=== PATIENT | female | born 1985 | race African-American/Black ===

== ENCOUNTER 2019-09-28 00:36 | Emergency (ER) | payer MEDICAID ==
[~2019-09-28] VITALS: Ht 162.6 cm; Wt 78.5 kg
[~2019-09-28 00:36] MED LIST: ACET-8386 PO; LEVE500T18 PO
[2019-09-28 00:43] VITALS: BP 124/75
--- NOTE | 2019-09-28 00:43 | NUR ---
PT TAKEN TO BED 12
--- NOTE | 2019-09-28 00:48 | NUR ---
PT ARRIVED TO ED C/O LEFT FOOT AND ANKLE PAIN S/P MECHANICAL FALL X TODAY AT 1430. RATES PAIN 9/10 AND DESCRIBES IT PRESSURE. VSS. PEDAL PULSES PRESENT BILATERALLY. CMS INTACT. NO REDNESS ON LEFT FOOT OR ANKLE. EDEMA PRESENT ON LEFT FOOT. PT IS UNABLE TO WALK, WHEELCHAIRED IN. NO OBVIOUS DEFORMITY NOTED ON EXTREMETIES. DENIES ANY HEAD INJURY. NKA. PMH: [place].
--- NOTE | 2019-09-28 01:08 | NUR ---
XR AT BEDSIDE.
[2019-09-28] MEDS ORDERED: KETOROLAC 60 MG/2 ML VIAL IM ONE (01:25)
--- NOTE | 2019-09-28 01:29 | NUR ---
PTS LEFT ANKEL WAS PUT IN A KASHMIR BANDAGE AND PT WAS ALSO GIVEN CRUTCHES. PTS PMSC WNL AND SHOWED GOOD USE OF CRUTCHES.
[2019-09-28 01:40] VITALS: BP 124/75
--- NOTE | 2019-09-28 01:40 | NUR ---
DISCHARGE PAPERS GIVEN TO PT. RX OF IBUPROFEN AND NORCO GIVEN. SIDE EFFECTS EXPLAINED. INSTRUCTED TO F/U WITH PCP AND WHEN TO RETURN TO ER. PT VERBALLIZED UNDERSTANDING OF DC INSTRUCTIONS. ALL QUESTIONS ANSWERED.
== END 2019-09-28 01:40 | disposition home or self-care (01) ==
LOC: MED 00:36
DX: S93.402A Sprain of unspecified ligament of left ankle, initial encounter (principal); F17.210 Nicotine dependence, cigarettes, uncomplicated; R56.9 Unspecified convulsions; W54.8XXA Other contact with dog, initial encounter; Y93.02 Activity, running; Y92.89 Other specified places as the place of occurrence of the external cause; Y99.8 Other external cause status
CPT/HCPCS: 73610; 96372; 99283; J1885; Q0092

== ENCOUNTER 2020-02-01 10:57 | Emergency (ER) | payer MEDICAID ==
[~2020-02-01] VITALS: Ht 162.6 cm; Wt 86.2 kg
[2020-02-01 11:13] VITALS: BP 123/78
[2020-02-01] MEDS ORDERED: KETOROLAC 60 MG/2 ML VIAL IM ONE ×2 (13:13→13:15)
[2020-02-01 13:27] VITALS: BP 119/71
== END 2020-02-01 13:26 | disposition home or self-care (01) ==
LOC: MED 10:57
DX: R10.9 Unspecified abdominal pain (principal); F12.10 Cannabis abuse, uncomplicated; Z79.899 Other long term (current) drug therapy; Z98.890 Other specified postprocedural states
CPT/HCPCS: 81002; 81025; 96372; 99283; J1885

== ENCOUNTER 2021-03-04 23:12 | Emergency (ER) | payer MEDICAID ==
[~2021-03-04] VITALS: Ht 162.6 cm; Wt 81.6 kg
[2021-03-04 23:14] VITALS: BP 130/81
--- NOTE | 2021-03-04 23:14 | NUR ---
TO BED VIA WHEELCHAIR
--- NOTE | 2021-03-04 23:19 | NUR ---
35 Y/O FEMALE ARRIVED TO THE ED WITH C/O SOB. PT REPORTS SOB STARTED 2 DAYS AGO AND HAS TAKEN ADVIL TO RELIEVE PAIN BUT HAS PERSISTED. PT DOES REPORT USAGE OF CIGARETTES AND SMOKING WEED. PATIENT HAS NON-PRODUCTIVE COUGH. PT ALSO REPORTS BRUISING ON THE RIGHT POSTERIOR RIBCAGE. BRUISING IS YELLOW. SKIN IS PINK/WARM/DRY; AAOX4 WITH EVEN AND STEADY GAIT; LUNGS CLEAR BL; HR EVEN AND REGULAR; PT DENIES ANY FEVER, CP, SOB, OR COUGH AT THIS TIME; PATIENT POSITIONED FOR COMFORT; HOB ELEVATED; BEDRAILS UP X2; BED DOWN. ER MD MADE AWARE OF PT STATUS. PMH: N/A ALLERGIES: NKA
--- NOTE | 2021-03-04 23:25 | NUR ---
RESPIRATORY THERAPIST AT BEDSIDE
--- NOTE | 2021-03-04 23:46 | NUR ---
AT BEDSIDE FOR EXAMINATION
[2021-03-04] MEDS ORDERED: ONDANSETRON 4 MG/2 ML VIAL IVP STA (23:54)
[2021-03-04] MEDS ORDERED: MORPHINE SULFATE 4 MG/ML SYR IVP STA (23:54)
[2021-03-04] MEDS ORDERED: KETOROLAC 30 MG/ML VIAL IVP ONE (23:55)
[2021-03-05 00:31] LABS: BASOPHILS % (AUTO) 0.2 % (0.0-2.0); EOSINOPHILS # (AUTO) 0.6 K/uL (0-0.4); EOSINOPHILS % (AUTO) 8.6 % (0.0-4.0); HEMATOCRIT 39.2 % (36-48); HEMOGLOBIN 12.6 g/dL (12.0-16.0); LYMPHOCYTES # (AUTO) 1.6 K/uL (2.5-16.5); LYMPHOCYTES % (AUTO) 24.4 % (20.5-51.1); MEAN CORPUSCULAR HEMOGLOBIN 27 pg (27-31); MEAN CORPUSCULAR HGB CONC 32 g/dL (33-37); MEAN CORPUSCULAR VOLUME 82.8 fL (80-94); MONOCYTES # (AUTO) 0.5 K/uL (0.8-1.0); MONOCYTES % (AUTO) 6.7 % (1.7-9.3); NEUTROPHILS % (AUTO) 60.1 % (42.2-75.2); PLATELET COUNT (AUTO) 330 K/uL (140-450); RED BLOOD CELL COUNT(AUTO) 4.74 MIL/uL (4.20-5.40); RED CELL DISTRIBUTION WIDTH 13.6 % (11.6-13.7); WHITE BLOOD COUNT (AUTO) 6.7 K/uL (4.8-10.8)
[2021-03-05 00:42] LABS: ALBUMIN 3.2 g/dL (3.4-5.0); ANION GAP 12.2 (8-16); CARBON DIOXIDE 29.1 mmol/L (21-32); CREATININE 0.9 mg/dL (0.6-1.3); POTASSIUM 3.3 mmol/L (3.5-5.1); TOTAL BILIRUBIN 0.1 mg/dL (0.0-1.0)
--- NOTE | 2021-03-05 01:10 | NUR ---
PT AMBULATED TO THE BATHROOM
--- NOTE | 2021-03-05 01:18 | NUR ---
URINE SENT TO LAB
[2021-03-05 01:25] LABS: APPEARANCE,URINE SL CLOUDY (CLEAR); BILIRUBIN,URINE 1+ (NEGATIVE); BLOOD, URINE TRACE-I (NEGATIVE); COLOR,URINE YELLOW (YELLOW); LEUKOCYTE ESTERASE ,URINE TRACE (NEGATIVE); NITRITE, URINE NEGATIVE (NEGATIVE); UGLUCOSE NEGATIVE (NEGATIVE)
[2021-03-05 01:33] LABS: RBC,URINE 0-5 /HPF (0-5); WBC,URINE 16-25 (MOD) /HPF (0-5)
--- NOTE | 2021-03-05 02:13 | NUR ---
PT TO CT VIA W/C
[2021-03-05] MEDS ORDERED: cefTRIAXone 1,000 MG VIAL ONE (02:53)
--- NOTE | 2021-03-05 04:13 | NUR ---
PT LAYING IN BED SLEEPING.
[2021-03-05] MEDS ORDERED: CEPH500C16 PO (05:19)
[2021-03-05 05:38] VITALS: BP 122/79
--- NOTE | 2021-03-05 05:38 | NUR ---
Patient discharged with v/s stable. Written and verbal after care instructions given and explained. Patient still had mild pain but was tolerable for patient. Pt 4/10 pain. Patient alert, oriented and verbalized understanding of instructions. Ambulatory with steady gait. All questions addressed prior to discharge. ID band removed. Patient advised to follow up with PMD. Rx of KEFLEX given. Patient educated on indication of medication including possible reaction and side effects. Opportunity to ask questions provided and answered.
== END 2021-03-05 05:38 | disposition home or self-care (01) ==
LOC: MED 23:12
DX: N12 Tubulo-interstitial nephritis, not specified as acute or chronic (principal); Z20.822 Contact with and (suspected) exposure to COVID-19; R06.02 Shortness of breath
CPT/HCPCS: 36415; 71045; 71275; 74177; 80053; 81001; 83690; 83880; 84484; 84702; 85025; 85379; 87086; 87426; 93005; 96365; 96375; 99284; J0696; J1885; J2270; J2405; J7060; Q9967